=== PATIENT | female | born 1985 ===

== ENCOUNTER 2023-05-17 09:44 | Outpatient (CLI) | payer MEDICAID, SELFPAY ==
--- NOTE | 2023-05-17 14:54 | OP.DCCON ---
Reason for Visit: 49814 - E66.9 Person Interviewed: Patient Medical History, Labs and Background: Adrienne mentioned cholesterol of 262, HDL 34 mg/dl, TG 238, LDL 180, VLDL 48, HbA1c 4.9, Glucose 95 Height: 5 ft 5 in Weight: 225 lb BMI: 37.5 kg/m2 UBW: 222-225 lbs Weight History: After having a with her daughter and after her mother , Adrienne's weight went from 170 to 225lbs. For a year after her Mom's she said she didn't care about anything. Concerns and Goals: Right now she is working hard to bring down her cholesterol and keep her glucose WNL. Sleep Hygiene: Last year she started wearing a CPAP for sleep apnea. Physical Activity: During warmer weather she likes to walk, but with work, homeschooling and cold weather, she hasn't been doing anything. Other Feeding Issues: In December she eliminated gluten and lactose from her diet because of diarrhea/stomach pain/digestive issues. Food Allergies and Sensitivities: Most likely she is allergic to gluten and lactose, however she said she is not sure that it is milk products. She may try to add yogurt back in to see how her body reacts. 24 Hour Recall: Breakfast Time: 8:30 water, bfast sausages, fruit, zucchini, cottage cheese Snack Time: water Lunch Time: 12-1pm rice w/beans, ground beef, veggies Snack Time: Dinner Time: 6-7pm salmon or tilapia, veggies, zucchini+mushrooms Snack Time: Eating Out: They eat out maybe 1x/week. Soda vs Milk vs Water: She has cut her caffeine consumption in half - Monster drink w/100mgs caffeine, 1/2-1 gallon water/day, no milk of juice Additional Comments: Adrienne uses olive oil for cooking and avocadoes. Snacks are ofter nut butter + toast or fruit. She said she has a sweet tooth and might have a candy bar. Although she would like to lose weight, she is a bit more concerned for her labs to be healthy - especially cholesterol and glucose. Recommendations: Assessment: Adrienne is highly motivated and has already implemented healthy behaviors like no gluten or lactose (possible allergy), avoiding any fried food, eating healthy fats like olive oil or avocadoes, eating lean meats and red meat maybe 2-3 times a week, limiting eggs and reducing caffeine and high sugar drinks. Nutrition Diagnosis: Altered nutrition related labs r/t cholesterol and glucose AEB Cholesterol of 262 and glucose currently WNL. Intervention: First, I encouraged Adrienne for all of the healthy changes that have resulted in a lean protein/ healthy fat/ high fiber diet. To help her balance her meals we looked at handouts covering the Diabetic MyPlate as well as 1500 and 1800 kcal meal plans. These will provide templates of how to balance and figure out serving sizes for her meals. We discussed how diet will help reduce cholesterol, but that activity and exercise would also help. She agreed to start with at least 15 minutes/day of activity that gets her moving but also is refreshing. 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 Lastly we discussed the Mediterranean style of eating and how it mirrors so much of what she is already doing and is praised as a heart healthy/ low fat and cholesterol diet. Monitoring and Evaluation: Goals were written on a take home sheet. At the bottom is my contact information at [facility] for f/u questions. Coding Level of Care Code Nutrition/Individ/Init 60 min Time Spent (min) 60
== END 2023-05-17 09:45 | disposition home or self-care (01) ==
PROVIDERS: Visit Provider Family Medicine
DX: E66.9 Obesity, unspecified (principal)
CPT/HCPCS: 97802